=== PATIENT | male | born 1970 | race Caucasian/White ===

== ENCOUNTER 2017-04-28 21:42 | Inpatient (IN) | payer OTHER ==
[2017-04-28] MEDS: LABETALOL HCL 20MG INJ IV (22:35)
[2017-04-28 22:46] LABS: ADD MAN DIFF? NO
[2017-04-28 22:50] LABS: WHITE BLOOD COUNT 8.8 10^3/ul (4.8-10.8)
[2017-04-28 22:50] LABS: BASOPHILS % 0.3 % (0.0-2.0); HEMATOCRIT 46.9 % (42.0-52.0); HEMOGLOBIN 15.8 g/dl (14.0-18.0); LYMPHOCYTES # 0.7 10^3/ul (0.8-2.9); LYMPHOCYTES % 8.2 % (15.0-51.0); MEAN CORPUSCULAR HEMOGLOBIN 28.4 pg (29.0-33.0); MEAN CORPUSCULAR HGB CONC 33.7 g/dl (32.0-37.0); MEAN CORPUSCULAR VOLUME 84.2 fl (82.0-101.0); MEAN PLATELET VOLUME 10.2 fl (7.4-10.4); MONOCYTE # 0.5 10^3/ul (0.3-0.9); MONOCYTES % 5.3 % (0.0-11.0); NEUTROPHIL # 7.6 10^3/ul (1.6-7.5); NEUTROPHILS % 85.7 % (39.0-77.0); PLATELET COUNT 274 10^3/UL (140-415); RED BLOOD COUNT 5.57 10^6/ul (4.70-6.10); RED CELL DISTRIBUTION WIDTH 13.1 % (11.5-14.5)
[2017-04-28 23:07] LABS: INR 0.93; PROTIME 12.5 Sec (11.9-14.9)
[2017-04-28 23:08] LABS: PARTIAL THROMBOPLASTIN TIME 27.9 Sec (25.0-35.0)
[2017-04-28 23:10] LABS: ALANINE AMINOTRANSFERASE 21 IU/L (13-69); ALBUMIN 5.3 g/dl (3.3-4.9); ALBUMIN/GLOBULIN RATIO 1.51; ALKALINE PHOSPHATASE 108 IU/L (42-121); ANION GAP 22 (8-16); ASPARTATE AMINO TRANSFERASE 30 IU/L (15-46); BLOOD UREA NITROGEN 34 mg/dl (7-20); CALCIUM 10.1 mg/dl (8.4-10.2); CARBON DIOXIDE 25 mmol/L (21-31); CHLORIDE 98 mmol/L (97-110); CREATININE 1.35 mg/dl (0.61-1.24); GLUCOSE 103 mg/dl (70-220); POTASSIUM 3.9 mmol/L (3.5-5.1); SODIUM 141 mmol/L (135-144); TOTAL PROTEIN 8.8 g/dl (6.1-8.1)
[2017-04-28 23:12] LABS: ETHANOL < 10.0 mg/dl
[2017-04-28 23:19] LABS: TROPONIN-I 0.019 ng/ml (0.00-0.12)
[2017-04-28 23:26] LABS: D-DIMER < 220.00 ng/ml (<460)
[2017-04-28 23:46] LABS: AMPHETAMINE/METHAMPHETAMINE Positive (NEGATIVE); BARBITURATES Negative (NEGATIVE); BENZODIAZEPINES Negative (NEGATIVE); CANNABINOIDS Negative (NEGATIVE); COCAINE Negative (NEGATIVE); OPIATES Negative (NEGATIVE)
[2017-04-28] MEDS: niCARdipine-NS 0.1MG/ML DRIP 200 ML IV (23:55)
[2017-04-29] MEDS ORDERED: ACETAMINOPHEN 650MG/20.3ML CUP PO
[2017-04-29] MEDS ORDERED: morphine 2 MG INJ IV
[2017-04-29] MEDS ORDERED: ONDANSETRON 4 MG INJ IV
[2017-04-29] MEDS: SOD CHLORIDE 0.9% 500 ML IV (00:30)
[2017-04-29] MEDS: IOHEXOL 100 ML (00:49)
[2017-04-29] MEDS: SOD CHLORIDE 0.9% 100 ML (00:50)
[2017-04-29] MEDS: SOD CHLORIDE 0.9% 1,000 ML IV ×2 (02:00→08:26)
[2017-04-29] MEDS ORDERED: LORAZEPAM 2 MG INJ IV (02:00)
[2017-04-29 02:27] LABS: ADD MAN DIFF? NO
[2017-04-29 02:33] LABS: BASOPHILS % 0.3 % (0.0-2.0); EOSINOPHILS % 0.2 % (0.0-7.0); HEMATOCRIT 41.7 % (42.0-52.0); HEMOGLOBIN 14.5 g/dl (14.0-18.0); LYMPHOCYTES # 1.2 10^3/ul (0.8-2.9); LYMPHOCYTES % 13.5 % (15.0-51.0); MEAN CORPUSCULAR HEMOGLOBIN 28.9 pg (29.0-33.0); MEAN CORPUSCULAR HGB CONC 34.8 g/dl (32.0-37.0); MEAN CORPUSCULAR VOLUME 83.2 fl (82.0-101.0); MEAN PLATELET VOLUME 10.1 fl (7.4-10.4); MONOCYTES % 10.6 % (0.0-11.0); NEUTROPHIL # 6.8 10^3/ul (1.6-7.5); NEUTROPHILS % 75.2 % (39.0-77.0); PLATELET COUNT 262 10^3/UL (140-415); RED BLOOD COUNT 5.01 10^6/ul (4.70-6.10); RED CELL DISTRIBUTION WIDTH 13.3 % (11.5-14.5)
[2017-04-29 02:46] LABS: HEMOGLOBIN A1C 5.2 % (0-5.9)
[2017-04-29 02:52] LABS: ALANINE AMINOTRANSFERASE 19 IU/L (13-69); ALBUMIN 4.9 g/dl (3.3-4.9); ALBUMIN/GLOBULIN RATIO 1.75; ALKALINE PHOSPHATASE 93 IU/L (42-121); ANION GAP 16 (8-16); ASPARTATE AMINO TRANSFERASE 24 IU/L (15-46); BILIRUBIN,INDIRECT 0.6 mg/dl (0-1.1); BILIRUBIN,TOTAL 0.6 mg/dl (0.2-1.3); BLOOD UREA NITROGEN 33 mg/dl (7-20); CALCIUM 9.5 mg/dl (8.4-10.2); CARBON DIOXIDE 28 mmol/L (21-31); CHLORIDE 102 mmol/L (97-110); CREATINE KINASE 55 IU/L (23-200); CREATININE 1.29 mg/dl (0.61-1.24); GLUCOSE 108 mg/dl (70-220); MAGNESIUM 2.3 mg/dl (1.7-2.5); PHOSPHORUS 3.9 mg/dl (2.5-4.9); POTASSIUM 3.7 mmol/L (3.5-5.1); SODIUM 142 mmol/L (135-144); TOTAL PROTEIN 7.7 g/dl (6.1-8.1)
[2017-04-29] MEDS: niCARdipine-NS 0.1MG/ML DRIP 200 ML IV ×4 (03:02→13:34)
[2017-04-29 03:03] LABS: CK INDEX 0.8; TROPONIN-I 0.018 ng/ml (0.00-0.12)
[2017-04-29 03:04] LABS: CK-MB 0.46 ng/ml (0.0-2.4)
[2017-04-29 03:22] LABS: THYROID STIMULATING HORMONE 0.333 MIU/L (0.465-4.680)
[2017-04-29] MEDS: PANTOPRAZOLE 40 MG INJ IV (05:29)
[2017-04-29 06:17] LABS: FREE T3 2.87 pg/ml (2.77-5.27); FREE T4 (FREE THYROXINE) 0.95 ng/dl (0.64-1.79)
[2017-04-29 13:55] LABS: CREATINE KINASE 45 IU/L (23-200)
[2017-04-29 14:07] LABS: CK INDEX 0.9; TROPONIN-I 0.033 ng/ml (0.00-0.12)
[2017-04-29] MEDS: AMLODIPINE 5 MG TAB PO (15:33)
[2017-04-29] MEDS: niCARdipine 25 MG in SOD CHLORIDE 0.9% 250 ML IV (19:40)
[2017-04-30 05:15] LABS: ADD MAN DIFF? NO
[2017-04-30 05:23] LABS: WHITE BLOOD COUNT 6.9 10^3/ul (4.8-10.8)
[2017-04-30 05:23] LABS: BASOPHILS % 0.6 % (0.0-2.0); EOSINOPHILS # 0.2 10^3/ul (0.0-0.5); EOSINOPHILS % 2.9 % (0.0-7.0); HEMATOCRIT 39.1 % (42.0-52.0); HEMOGLOBIN 13.2 g/dl (14.0-18.0); LYMPHOCYTES # 1.6 10^3/ul (0.8-2.9); LYMPHOCYTES % 23.3 % (15.0-51.0); MEAN CORPUSCULAR HEMOGLOBIN 28.6 pg (29.0-33.0); MEAN CORPUSCULAR HGB CONC 33.8 g/dl (32.0-37.0); MEAN CORPUSCULAR VOLUME 84.6 fl (82.0-101.0); MONOCYTE # 0.7 10^3/ul (0.3-0.9); MONOCYTES % 10.5 % (0.0-11.0); NEUTROPHIL # 4.3 10^3/ul (1.6-7.5); NEUTROPHILS % 62.4 % (39.0-77.0); PLATELET COUNT 247 10^3/UL (140-415); RED BLOOD COUNT 4.62 10^6/ul (4.70-6.10); RED CELL DISTRIBUTION WIDTH 13.4 % (11.5-14.5)
[2017-04-30 05:37] LABS: ALANINE AMINOTRANSFERASE 23 IU/L (13-69); ALBUMIN/GLOBULIN RATIO 1.66; ALKALINE PHOSPHATASE 71 IU/L (42-121); ANION GAP 15 (8-16); ASPARTATE AMINO TRANSFERASE 20 IU/L (15-46); BILIRUBIN,INDIRECT 0.8 mg/dl (0-1.1); BILIRUBIN,TOTAL 0.8 mg/dl (0.2-1.3); BLOOD UREA NITROGEN 25 mg/dl (7-20); CALCIUM 9.1 mg/dl (8.4-10.2); CARBON DIOXIDE 26 mmol/L (21-31); CHLORIDE 107 mmol/L (97-110); GLUCOSE 83 mg/dl (70-220); MAGNESIUM 2.1 mg/dl (1.7-2.5); PHOSPHORUS 3.3 mg/dl (2.5-4.9); POTASSIUM 3.6 mmol/L (3.5-5.1); SODIUM 144 mmol/L (135-144); TOTAL PROTEIN 6.4 g/dl (6.1-8.1)
[2017-04-30] MEDS: SOD CHLORIDE 0.9% 1,000 ML IV (05:45)
[2017-04-30] MEDS: PANTOPRAZOLE 40 MG INJ IV (06:10)
[2017-04-30] MEDS: AMLODIPINE 5 MG TAB PO ×2 (08:04→22:00)
[2017-04-30] MEDS: niCARdipine 25 MG in SOD CHLORIDE 0.9% 250 ML IV ×2 (08:05→12:23)
[2017-04-30] MEDS ORDERED: ZOLPIDEM 5 MG TAB PO (19:00)
[2017-05-01] MEDS: ENALAPRILAT 1.25 MG INJ IV (00:12)
[2017-05-01 06:42] LABS: ADD MAN DIFF? NO
[2017-05-01 06:43] LABS: BASOPHILS % 0.6 % (0.0-2.0); EOSINOPHILS # 0.3 10^3/ul (0.0-0.5); EOSINOPHILS % 5.5 % (0.0-7.0); HEMATOCRIT 39.8 % (42.0-52.0); HEMOGLOBIN 13.7 g/dl (14.0-18.0); LYMPHOCYTES # 1.4 10^3/ul (0.8-2.9); LYMPHOCYTES % 26.6 % (15.0-51.0); MEAN CORPUSCULAR HEMOGLOBIN 28.9 pg (29.0-33.0); MEAN CORPUSCULAR HGB CONC 34.4 g/dl (32.0-37.0); MEAN PLATELET VOLUME 9.5 fl (7.4-10.4); MONOCYTE # 0.6 10^3/ul (0.3-0.9); MONOCYTES % 11.9 % (0.0-11.0); NEUTROPHIL # 2.9 10^3/ul (1.6-7.5); NEUTROPHILS % 55.2 % (39.0-77.0); PLATELET COUNT 249 10^3/UL (140-415); RED BLOOD COUNT 4.74 10^6/ul (4.70-6.10); RED CELL DISTRIBUTION WIDTH 12.9 % (11.5-14.5)
[2017-05-01 06:43] LABS: WHITE BLOOD COUNT 5.3 10^3/ul (4.8-10.8)
[2017-05-01 07:09] LABS: ALANINE AMINOTRANSFERASE 25 IU/L (13-69); ALBUMIN 3.9 g/dl (3.3-4.9); ALKALINE PHOSPHATASE 75 IU/L (42-121); ANION GAP 14 (8-16); ASPARTATE AMINO TRANSFERASE 21 IU/L (15-46); BILIRUBIN,INDIRECT 0.6 mg/dl (0-1.1); BILIRUBIN,TOTAL 0.6 mg/dl (0.2-1.3); BLOOD UREA NITROGEN 23 mg/dl (7-20); CALCIUM 9.2 mg/dl (8.4-10.2); CARBON DIOXIDE 26 mmol/L (21-31); CHLORIDE 106 mmol/L (97-110); CREATININE 1.27 mg/dl (0.61-1.24); GLUCOSE 103 mg/dl (70-220); MAGNESIUM 1.9 mg/dl (1.7-2.5); PHOSPHORUS 3.3 mg/dl (2.5-4.9); POTASSIUM 3.5 mmol/L (3.5-5.1); SODIUM 142 mmol/L (135-144); TOTAL PROTEIN 6.5 g/dl (6.1-8.1)
[2017-05-01] MEDS: AMLODIPINE 5 MG TAB PO (08:12)
[2017-05-01] MEDS: INFLUENZA VIRUS VACCINE 0.5 ML (DISPENSING) IM* (08:13)
== END 2017-05-01 12:00 | disposition home or self-care (01) | DRG 65 ==
LOC: MS2 04-30 17:50 → E/R 21:42 → ICU 23:52
DX: I61.4 Nontraumatic intracerebral hemorrhage in cerebellum (principal); I16.1 Hypertensive emergency; R47.81 Slurred speech; R53.1 Weakness; E11.9 Type 2 diabetes mellitus without complications; F15.10 Other stimulant abuse, uncomplicated; F17.210 Nicotine dependence, cigarettes, uncomplicated; F90.9 Attention-deficit hyperactivity disorder, unspecified type; I10 Essential (primary) hypertension; T43.621A Poisoning by amphetamines, accidental (unintentional), initial encounter; Y92.019 Unspecified place in single-family (private) house as the place of occurrence of the external cause; Z79.4 Long term (current) use of insulin
CPT/HCPCS: 36415; 70450; 70496; 70553; 71045; 80053; 80306; 80307; 82550; 82553; 83036; 83735; 84100; 84439; 84443; 84481; 84484; 85025; 85378; 85610; 85730; 87081; 90686; 93005; 93306; 96374; 96375; 97162; 99291-25